=== PATIENT | female | born 2005 | race Hispanic/Latino ===

== ENCOUNTER 2025-02-20 12:23 | Emergency (ER) | payer OTHER ==
[~2025-02-20] VITALS: Ht 160 cm; Wt 55.7 kg
[2025-02-20 15:37] VITALS: BP 121/75; O2SAT 97
[2025-02-20] MEDS: ACETAMINOPHEN 325 MG TAB PO ONE (15:42)
[2025-02-20] MEDS: cefTRIAXone SOD 1 GM in DEXTROSE 5% (D5W) ADV/MINI-BAG 50 ML IV ONE (17:04)
[2025-02-20] MEDS: NS (Normal Saline) 0.9% 1,000 ML IV ONE (17:04)
[2025-02-20] MEDS: KETOROLAC 30 MG/ML 1 ML VIAL IV ONE (17:05)
[2025-02-20 17:09] VITALS: TEMP 100.6
[2025-02-20 17:28] LABS: BASO # 0.0 10^3/uL (0.0-0.2); BASO % 0.2 % (0.0-1.0); EOS # 0.0 10^3/uL (0.0-0.5); EOS % 0.0 % (0.0-3.0); LYMPH # 1.3 10^3/uL (1.5-5.0); LYMPH % 9.9 % (24.0-44.0); MONO # 1.1 10^3/uL (0.0-0.8); MONO % 7.9 % (2.0-8.0); NEUTROPHILS # 11.0 10^3/uL (1.5-8.5); NEUTROPHILS % 81.6 % (36.0-66.0); PLATELET COUNT, AUTOMATED 319 10^3/uL (150-450)
[2025-02-20 18:00] LABS: CALCIUM LEVEL 9.1 MG/DL (8.5-10.1); CARBON DIOXIDE LEVEL 21 MMOL/L (20-31); CHLORIDE LEVEL 102 MMOL/L (98-107); CREATININE FOR GFR 0.68 MG/DL (0.55-1.30); GLOMERULAR FILTRATION RATE > 90.0 (>60); POTASSIUM SERUM 3.8 MMOL/L (3.5-5.1); SODIUM LEVEL 139 MMOL/L (136-145)
[2025-02-20 18:10] LABS: MONO SCRN NEGATIVE (NEGATIVE)
[2025-02-20] MEDS ORDERED: AMOX875T2 PO (18:19)
== END 2025-02-20 18:26 | disposition home or self-care (01) ==
LOC: M ED 12:23
DX: J03.90 Acute tonsillitis, unspecified (principal); Z79.2 Long term (current) use of antibiotics
CPT/HCPCS: 80048; 85025; 86308; 87070; 87077; 87486; 87581; 87633; 87798; 87880; 96365; 96375; 99284; J0696; J1885